=== PATIENT | female | born 1985 | race African-American/Black ===

== ENCOUNTER 2021-10-07 00:37 | Emergency (ER) | payer SELFPAY ==
[~2021-10-07] VITALS: Ht 162.6 cm; Wt 138.0 kg
[2021-10-07] MEDS ORDERED: HYDROCODONE/ACETAMINOPHEN 5/325MG TABLET PO ONE (01:30)
[2021-10-07] MEDS ORDERED: IBUP-2028 MT (03:54)
[2021-10-07 04:12] VITALS: BP 102/61
== END 2021-10-07 04:21 | disposition home or self-care (01) ==
LOC: ER 00:37
DX: S16.1XXA Strain of muscle, fascia and tendon at neck level, initial encounter (principal); S46.911A Strain of unspecified muscle, fascia and tendon at shoulder and upper arm level, right arm, initial encounter; S90.511A Abrasion, right ankle, initial encounter; J45.909 Unspecified asthma, uncomplicated; V43.62XA Car passenger injured in collision with other type car in traffic accident, initial encounter; W22.12XA Striking against or struck by front passenger side automobile airbag, initial encounter; Y93.89 Activity, other specified; Y92.488 Other paved roadways as the place of occurrence of the external cause
CPT/HCPCS: 71045; 72040; 73030; 73610; 99284

== ENCOUNTER 2021-12-17 20:21 | Emergency (ER) | payer MEDICAID ==
[~2021-12-17] VITALS: Ht 160 cm; Wt 59.0 kg
[~2021-12-17 20:21] MED LIST: IBUP-2028 MT
[2021-12-17 20:46] VITALS: BP 98/71
[2021-12-17] MEDS ORDERED: IBUP-2029 MT (20:57)
[2021-12-17] MEDS ORDERED: ONDA4TAB11 PO (20:57)
== END 2021-12-17 21:30 | disposition home or self-care (01) ==
LOC: ER 20:21
DX: U07.1 COVID-19 (principal); B34.9 Viral infection, unspecified
CPT/HCPCS: 99283